=== PATIENT | female | born 2005 | race Hispanic/Latino ===

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

== ENCOUNTER 2023-03-12 08:21 | Emergency (ER) | payer OTHER, MEDICAID ==
[2023-03-12] VITALS (8 sets, daily range): BP systolic 106–121; BP diastolic 68–90
[~2023-03-12] VITALS: Ht 160 cm; Wt 52.0 kg
[2023-03-12 09:07] LABS: BASO% 0.7 % (0-3); EOS% 2.9 % (0-8); HEMATOCRIT 41.6 % (37.0-47.0); HEMOGLOBIN 13.1 g/dl (12.0-16.0); IMMATURE GRANULOCYTES 0.2 % (0.0-5.0); LYMPH% 34.4 % (15-41); MEAN CELL VOLUME 82.5 fL CALC (80.0-100.0); MEAN CORPUSCULAR HGB CONC 31.5 g/dL CAL (32.0-36.0); MONO% 5.8 % (2-13); NEUT# 2.52 thou/uL (2.00-7.15); RED BLOOD COUNT 5.04 mill/uL (4.20-5.60); RED CELL DISTRI WIDTH 12.2 % (11.5-15.5)
[2023-03-12 09:13] LABS: ALBUMIN 4.1 g/dL (3.2-5.0); ALKALINE PHOSPHATASE 39 u/l (38-126); ANION GAP 11 (6-22 (CALC)); BILIRUBIN, TOTAL 0.2 mg/dL (0.02-1.3); BUN 9 mg/dL (8-21); BUN/CREATININE RATIO 14 (12-20 (CALC)); CARBON DIOXIDE 23 mmol/l (22-30); CHLORIDE 109 mmol/l (95-108); CREATININE 0.6 mg/dL (0.5-1.0); GFR FOR AFR.AMER. > 60 ML/MIN (>=60 (CALC)); GFR OTHER RACES > 60 ML/MIN (>=60 (CALC)); POTASSIUM 4.9 mmol/l (3.5-5.1); SGOT/AST 27 u/l (14-36); SODIUM 139 mmol/l (137-146); TOTAL PROTEIN 6.8 g/dL (6.3-8.2)
[2023-03-12 09:16] LABS: URINE BILIRUBIN - DIPSTICK NEGATIVE (NEGATIVE); URINE BLOOD DIPSTICK LARGE (NEGATIVE); URINE GLUCOSE - DIPSTICK NEGATIVE (NEGATIVE); URINE KETONE NEGATIVE (NEGATIVE); URINE LEUK ESTERASE NEGATIVE (NEGATIVE); URINE PROTEIN - DIPSTICK 100 mg/dL (NEG-TRACE); URINE UROBILINOGEN - DIPSTICK 0.2 E.U./dL (0.2)
[2023-03-12 09:17] LABS: URINE NITRITE - DIPSTICK POSITIVE (Negative)
[2023-03-12 09:18] LABS: URINE BACTERIA MANY hpf; URINE COLOR PINK; URINE SQUAMOUS EPITHELIAL CELL MANY EPI/hpf (0-FEW)
[2023-03-12] MEDS ORDERED: ZOFRAN4 MG/TAB PO (11:06)
[2023-03-12] MEDS ORDERED: TRAMADOL HYDROC50 M1 PO (11:06)
[2023-03-12] MEDS ORDERED: OMNICEF300 M1 PO (14:11)
== END 2023-03-12 11:30 | disposition home or self-care (01) | DRG 760 ==
LOC: ED 08:21
PROVIDERS: Family Medicine
DX: N92.0 Excessive and frequent menstruation with regular cycle (principal); N39.0 Urinary tract infection, site not specified; B96.20 Unspecified Escherichia coli [E. coli] as the cause of diseases classified elsewhere

== ENCOUNTER 2023-05-02 23:10 | Emergency (ER) | payer OTHER, MEDICAID ==
[~2023-05-02] VITALS: Ht 160 cm; Wt 56.0 kg
[~2023-05-02 23:10] MED LIST changes: +OMNICEF300 M1 PO; +TRAMADOL HYDROC50 M1 PO; +ZOFRAN4 MG/TAB PO
[2023-05-03 00:20] LABS: BASO% 0.4 % (0-3); EOS% 1.5 % (0-8); HEMATOCRIT 38.4 % (37.0-47.0); HEMOGLOBIN 12.1 g/dl (12.0-16.0); IMMATURE GRANULOCYTES 0.3 % (0.0-5.0); MEAN CELL VOLUME 82.9 fL CALC (80.0-100.0); MEAN CORPUSCULAR HGB 26.1 pG CALC (26.0-32.0); MEAN CORPUSCULAR HGB CONC 31.5 g/dL CAL (32.0-36.0); MONO% 5.7 % (2-13); NEUT# 5.78 thou/uL (2.00-7.15); NEUT% 77.1 % (42-76); RED BLOOD COUNT 4.63 mill/uL (4.20-5.60); RED CELL DISTRI WIDTH 12.5 % (11.5-15.5)
[2023-05-03 00:25] LABS: URINE BILIRUBIN - DIPSTICK NEGATIVE (NEGATIVE); URINE BLOOD DIPSTICK LARGE (NEGATIVE); URINE COLOR YELLOW; URINE GLUCOSE - DIPSTICK NEGATIVE (NEGATIVE); URINE KETONE NEGATIVE (NEGATIVE); URINE LEUK ESTERASE SMALL (NEGATIVE); URINE NITRITE - DIPSTICK NEGATIVE (Negative); URINE PROTEIN - DIPSTICK 30 mg/dL (NEG-TRACE); URINE SPECIFIC GRAVITY 1.015; URINE UROBILINOGEN - DIPSTICK 0.2 E.U./dL (0.2)
[2023-05-03 00:38] LABS: ALBUMIN 3.8 g/dL (3.2-5.0); ALKALINE PHOSPHATASE 48 u/l (38-126); ANION GAP 10 (6-22 (CALC)); BUN 7 mg/dL (8-21); BUN/CREATININE RATIO 11 (12-20 (CALC)); CARBON DIOXIDE 26 mmol/l (22-30); CHLORIDE 105 mmol/l (95-108); CREATININE 0.6 mg/dL (0.5-1.0); GFR FOR AFR.AMER. > 60 ML/MIN (>=60 (CALC)); GFR OTHER RACES > 60 ML/MIN (>=60 (CALC)); LIPASE 35 u/l (23-300); SGOT/AST 41 u/l (14-36); SODIUM 137 mmol/l (137-146); TOTAL PROTEIN 6.7 g/dL (6.3-8.2)
[2023-05-03 00:39] LABS: URINE BACTERIA FEW hpf; URINE SQUAMOUS EPITHELIAL CELL MANY EPI/hpf (0-FEW)
[2023-05-03] MEDS ORDERED: IMODIUM2 MG PO (02:01)
[2023-05-03] MEDS ORDERED: ZOFRAN4 MG/TAB PO (02:01)
[2023-05-03 02:45] VITALS: BP 112/67
== END 2023-05-03 02:47 | disposition home or self-care (01) | DRG 392 ==
LOC: ED 23:10
PROVIDERS: Emergency Medicine
DX: K52.9 Noninfective gastroenteritis and colitis, unspecified (principal); Z20.822 Contact with and (suspected) exposure to COVID-19

== ENCOUNTER 2023-08-24 16:16 | Emergency (ER) | payer OTHER, MEDICAID ==
[~2023-08-24] VITALS: Ht 160 cm; Wt 56.0 kg
[~2023-08-24 16:16] MED LIST changes: +IMODIUM2 MG PO
[2023-08-24 16:30] VITALS: BP 146/85
[2023-08-24 16:41] LABS: BASO% 0.8 % (0-3); EOS% 1.4 % (0-8); HEMATOCRIT 39.1 % (37.0-47.0); HEMOGLOBIN 12.6 g/dl (12.0-16.0); IMMATURE GRANULOCYTES 0.3 % (0.0-5.0); LYMPH% 17.6 % (15-41); MEAN CELL VOLUME 82.5 fL CALC (80.0-100.0); MEAN CORPUSCULAR HGB 26.6 pG CALC (26.0-32.0); MEAN CORPUSCULAR HGB CONC 32.2 g/dL CAL (32.0-36.0); MONO% 8.5 % (2-13); NEUT# 4.64 thou/uL (2.00-7.15); NEUT% 71.4 % (42-76); RED BLOOD COUNT 4.74 mill/uL (4.20-5.60); RED CELL DISTRI WIDTH 12.8 % (11.5-15.5)
[2023-08-24 16:54] LABS: ALBUMIN 4.4 g/dL (3.2-5.0); ALKALINE PHOSPHATASE 41 u/l (38-126); ANION GAP 14 (6-22 (CALC)); BUN 7 mg/dL (8-21); BUN/CREATININE RATIO 11 (12-20 (CALC)); CARBON DIOXIDE 22 mmol/l (22-30); CHLORIDE 105 mmol/l (95-108); CREATININE 0.7 mg/dL (0.5-1.0); GFR FOR AFR.AMER. > 60 ML/MIN (>=60 (CALC)); GFR OTHER RACES > 60 ML/MIN (>=60 (CALC)); SGOT/AST 36 u/l (14-36); SODIUM 137 mmol/l (137-146); TOTAL PROTEIN 7.7 g/dL (6.3-8.2)
[2023-08-24 16:58] LABS: BILIRUBIN, TOTAL 0.4 mg/dL (0.02-1.3)
[2023-08-24 17:00] VITALS: BP 124/79
[2023-08-24 17:30] VITALS: BP 106/71
[2023-08-24 18:00] VITALS: BP 106/71
[2023-08-24] MEDS ORDERED: CHERATUSSIN PO (18:19)
[2023-08-24 18:20] VITALS: BP 106/71
== END 2023-08-24 18:21 | disposition home or self-care (01) | DRG 153 ==
LOC: ED 16:16
PROVIDERS: Family Medicine
DX: J11.1 Influenza due to unidentified influenza virus with other respiratory manifestations (principal); J45.909 Unspecified asthma, uncomplicated; Z20.822 Contact with and (suspected) exposure to COVID-19

== ENCOUNTER 2023-12-04 20:32 | Emergency (ER) | payer OTHER ==
[~2023-12-04] VITALS: Ht 160 cm; Wt 56.0 kg
[~2023-12-04 20:32] MED LIST changes: +CHERATUSSIN PO
[2023-12-04 20:50] VITALS: BP 108/63
[2023-12-04] MEDS ORDERED: NAPROXEN375 MG PO (21:05)
[2023-12-04] MEDS ORDERED: AUGMENTIN500TAB PO (21:05)
[2023-12-04 21:24] VITALS: BP 108/63
== END 2023-12-04 21:24 | disposition home or self-care (01) | DRG 605 ==
LOC: ED 20:32
DX: S61.052A Open bite of left thumb without damage to nail, initial encounter (principal); L08.9 Local infection of the skin and subcutaneous tissue, unspecified; W55.01XA Bitten by cat, initial encounter; Y93.K9 Activity, other involving animal care; Y92.59 Other trade areas as the place of occurrence of the external cause; Y99.0 Civilian activity done for income or pay

== ENCOUNTER 2024-07-05 20:31 | Emergency (ER) | payer OTHER ==
[2024-07-05] VITALS (8 sets, daily range): BP systolic 86–118; BP diastolic 50–87
[~2024-07-05] VITALS: Ht 160 cm; Wt 60.0 kg
[~2024-07-05 20:31] MED LIST changes: +AUGMENTIN500TAB PO; +CYCLOBENZAPRINE10 MG PO; +MEDDOSEPAK PO; +NAPROXEN375 MG PO
[2024-07-05] MEDS ORDERED: SODIUM CHLORIDE 0.9% 1,000 ML IV STA (20:49)
[2024-07-05] MEDS ORDERED: PROMETHAZINE HCL 25 MG/ML AMP IV ONE (20:50)
[2024-07-05] MEDS ORDERED: KETOROLAC TROMETHAMINE 30 MG/ML SDV IV ONE (20:50)
[2024-07-05 21:29] LABS: BASO% 0.4 % (0-3); EOS% 0.4 % (0-8); HEMATOCRIT 37.7 % (37.0-47.0); HEMOGLOBIN 12.2 g/dl (12.0-16.0); IMMATURE GRANULOCYTES 0.1 % (0.0-5.0); LYMPH% 8.1 % (15-41); MEAN CELL VOLUME 81.4 fL CALC (80.0-100.0); MEAN CORPUSCULAR HGB 26.3 pG CALC (26.0-32.0); MEAN CORPUSCULAR HGB CONC 32.4 g/dL CAL (32.0-36.0); MONO% 2.6 % (2-13); NEUT# 9.59 thou/uL (2.00-7.15); NEUT% 88.4 % (42-76); RED BLOOD COUNT 4.63 mill/uL (4.20-5.60); RED CELL DISTRI WIDTH 12.6 % (11.5-15.5)
[2024-07-05 21:38] LABS: ALBUMIN 4.7 g/dL (3.2-5.0); BILIRUBIN, TOTAL 0.4 mg/dL (0.02-1.3); CREATININE 0.7 mg/dL (0.5-1.0); POTASSIUM 4.1 mmol/l (3.5-5.1); TOTAL PROTEIN 7.9 g/dL (6.3-8.2)
[2024-07-05 22:58] LABS: URINE BILIRUBIN - DIPSTICK Negative (NEGATIVE); URINE BLOOD DIPSTICK Small (NEGATIVE); URINE COLOR Yellow; URINE GLUCOSE - DIPSTICK Negative (NEGATIVE); URINE KETONE 80 mg/dL (NEGATIVE); URINE LEUK ESTERASE Small (NEGATIVE); URINE NITRITE - DIPSTICK Negative (Negative); URINE PH 8.5 (4.5-8.0); URINE PROTEIN - DIPSTICK 30 mg/dL (NEG-TRACE); URINE UROBILINOGEN - DIPSTICK 0.2 E.U./dL (0.2)
[2024-07-05 23:04] LABS: URINE SQUAMOUS EPITHELIAL CELL FEW EPI/hpf (0-FEW); URINE WBC 20-50 WBC/hpf (0-5)
[2024-07-05] MEDS ORDERED: SULFAMETHOXAZOLE W/TRIMETHOPRI 1 COMBO TAB PO ONE (23:05)
[2024-07-05] MEDS ORDERED: PROMETHAZINE HY25 M1 PO (23:07)
[2024-07-05] MEDS ORDERED: BACTRIM DS1 TAB PO (23:07)
== END 2024-07-05 23:30 | disposition home or self-care (01) | DRG 392 ==
LOC: ED 20:31
PROVIDERS: Family Medicine
DX: K52.9 Noninfective gastroenteritis and colitis, unspecified (principal); N39.0 Urinary tract infection, site not specified; B96.89 Other specified bacterial agents as the cause of diseases classified elsewhere; Z20.822 Contact with and (suspected) exposure to COVID-19
CPT/HCPCS: Q9967

== ENCOUNTER 2024-11-26 10:51 | Emergency (ER) | payer OTHER ==
[~2024-11-26] VITALS: Ht 160 cm; Wt 58.0 kg
[~2024-11-26 10:51] MED LIST changes: +BACTRIM DS1 TAB PO; +PROMETHAZINE HY25 M1 PO
[2024-11-26 11:59] VITALS: BP 142/95
[2024-11-26 12:17] VITALS: BP 122/104
[2024-11-26] MEDS ORDERED: ZOFRAN4 MG/TAB PO (12:29)
[2024-11-26] MEDS ORDERED: ZPAK PO (12:29)
[2024-11-26] MEDS ORDERED: LEVOCETIRIZINE D5 MG PO (12:29)
[2024-11-26] MEDS ORDERED: BENZONATATE200 MG PO (12:31)
[2024-11-26 12:44] VITALS: BP 106/82
[2024-11-26 12:45] VITALS: BP 106/82
== END 2024-11-26 12:47 | disposition home or self-care (01) | DRG 153 ==
LOC: ED 10:51
DX: J06.9 Acute upper respiratory infection, unspecified (principal); J32.9 Chronic sinusitis, unspecified; J45.909 Unspecified asthma, uncomplicated; Z20.822 Contact with and (suspected) exposure to COVID-19